=== PATIENT | female | born 1980 | race Caucasian/White ===

== ENCOUNTER 2017-08-30 09:55 | Emergency (ER) | payer OTHER ==
[2017-08-30 10:27] VITALS: BP 123/68
--- NOTE | 2017-08-30 11:49 | UC ---
Throat Pain/Nasal Naeem HPI - HPI Summary HPI Summary: sinus pain and head ache getting worse for the past 2 weeks using sudafed and allergy medicine with out relief - History of Current Complaint Chief Complaint: UCGeneralIllness Stated Complaint: SINUS/CAMPOVERDE Time Seen by Provider: 08/30/17 11:41 Hx Obtained From: Patient Hx Last Menstrual Period: s/p Uterine Ablation and Tubal Ligation ?: No Onset/Duration: Gradual Onset, Lasting Weeks - 2, Still Present Pain Intensity: 9 Pain Scale Used: 0-10 Numeric Cough: None Associated Signs & Symptoms: Positive: Sinus Discomfort - Allergies/Home Medications Allergies/Adverse Reactions: Allergies Allergy/AdvReac Type Severity Reaction Status Date / Time No Known Allergies Allergy Verified 08/30/17 10:17 Home Medications: Home Medications FLUoxetine CAP* [Prozac CAP*] 120 mg PO DAILY 08/30/17 [History Confirmed ] LevoCETirizine TAB (NF) [Xyzal TAB (NF)] 5 mg PO DAILY 08/30/17 [History Confirmed 08/30/17] Phenylephrine HCl/Acetaminophn [Sudafed PE Pressure+Pain Cplt] 1 each PO Q4H PRN 08/30/17 [History Confirmed 08/30/17] SUMAtriptan TAB* [Imitrex TAB*] 100 mg PO SEE INSTRUCTIONS 08/30/17 [History Confirmed 08/30/17] Topiramate TAB(*) [Topamax 25 MG tab] 25 mg PO BID 08/30/17 [History Confirmed 08/30/17] PMH/Surg Hx/FS Hx/Imm Hx Previously Healthy: No Psychological History: Depression - Surgical History Surgical History: Yes Surgery Procedure, Year, and Place: Uterine Ablation, 2015, [place]; Tubal Ligation, 2005, [place]; Rhinoplasty, 2002, [place]; Tonsillectomy, ~, [place] - Family History Known Family History: Positive: None - Social History Occupation: Employed Full-time Lives: With Family Alcohol Use: None Substance Use Type: None Smoking Status (MU): Former Smoker Length of Time of Smoking/Using Tobacco: 1 PPD x 10 Years When Did the Patient Quit Smoking/Using Tobacco: 2009 Review of Systems Constitutional: Chills, Fatigue Skin: Negative Eyes: Negative ENT: Ear Ache, Sinus Congestion, Sinus Pain/Tenderness Respiratory: Negative Cardiovascular: Negative Gastrointestinal: Negative Genitourinary: Negative Motor: Negative Neurovascular: Negative Musculoskeletal: Negative Neurological: Negative Psychological: Negative Is Patient Immunocompromised?: No All Other Systems Reviewed And Are Negative: Yes Physical Exam Triage Information Reviewed: Yes Appearance: Well-Appearing, Well-Nourished, Pain Distress - mild Vital Signs: Initial Vital Signs Temp 98 F 08/30/17 10:15 Pulse 80 08/30/17 10:15 Resp 16 08/30/17 10:15 BP 123/68 08/30/17 10:15 Pulse Ox 100 08/30/17 10:15 Vital Signs Reviewed: Yes Eye Exam: Normal Eyes: Positive: Conjunctiva Clear ENT Exam: Normal ENT: Positive: Normal ENT inspection, Hearing grossly normal, Pharynx normal, Nasal congestion, TMs normal, Sinus tenderness, Uvula midline. Negative: Nasal drainage, Tonsillar swelling, Tonsillar exudate, Trismus, Muffled voice, Hoarse voice, Dental tenderness Dental Exam: Normal Neck exam: Normal Neck: Positive: Supple, Nontender Respiratory Exam: Normal Respiratory: Positive: Chest non-tender, Lungs clear, Normal breath sounds, No respiratory distress, No accessory muscle use Cardiovascular Exam: Normal Cardiovascular: Positive: RRR, No Murmur, Pulses Normal, Brisk Capillary Refill Musculoskeletal Exam: Normal Musculoskeletal: Positive: Strength Intact, ROM Intact, No Edema Neurological Exam: Normal Neurological: Positive: Alert, Muscle Tone Normal Psychological Exam: Normal Skin Exam: Normal Throat Pain/Nasal Course/Dx - Course Assessment/Plan: Augmentin, flonase continue sudafed and allergy med, tylenol/ ibuprofen follow with pcp prn - Differential Dx/Diagnosis Provider Diagnoses: acute sinusitis Discharge - Sign-Out/Discharge Documenting (check all that apply): Discharge/Admit/Transfer - Discharge Plan Condition: Stable Disposition: HOME Prescriptions: Amoxicillin/Clavulanate TAB* [Augmentin TAB 875*] 875 mg PO BID #20 tab Fluticasone NASAL SPRAY 50MCG* [Flonase NASAL SPRAY 50MCG*] 2 spray BOTH NARES DAILY #1 btl Patient Education Materials: Sinusitis (ED), How to Use Nasal [place] (ED) Referrals: Fiordaliza Camilo PA [Primary Care Provider] - If Needed - Billing Disposition and Condition Condition: STABLE Disposition: Home
== END 2017-08-30 11:58 | disposition home or self-care (01) ==
LOC: UCCORT 09:55
DX: J01.90 Acute sinusitis, unspecified (principal); Z87.891 Personal history of nicotine dependence
CPT/HCPCS: 99212; G0463